=== PATIENT | female | born 1990 | race Caucasian/White ===

== ENCOUNTER 2023-03-16 10:11 | Emergency (ER) | payer OTHER ==
[2023-03-16] MEDS ORDERED: Ketorolac Tromethamine 30 MG/ML VIAL ONE (10:52)
[2023-03-16] MEDS ORDERED: Morphine 10 MG/ML VIAL ONE (10:53)
== END 2023-03-16 13:00 | disposition home or self-care (01) ==
LOC: CSHERS 10:11
DX: M79.642 Pain in left hand (principal); G89.18 Other acute postprocedural pain
CPT/HCPCS: 29125; 96372; J1885; J2270